=== PATIENT | female | born 1965 | race Caucasian/White ===

== ENCOUNTER → 2024-07-17 15:09 | Outpatient (REF) | payer BC, SELFPAY | LOC: RAD 15:09 | PROVIDERS: ATTENDING PHYSICIAN Student in an Organized Health Care Education/Training Program | DX: M79.604 Pain in right leg (principal) | CPT/HCPCS: 93971 ==

== ENCOUNTER 2024-10-29 06:24 | Day surgery (SDC) | payer BC, SELFPAY | END 2024-10-29 13:29 | disposition home or self-care (01) | LOC: GI 06:24 | PROVIDERS: ATTENDING PHYSICIAN Internal Medicine | DX: Z12.11 Encounter for screening for malignant neoplasm of colon (principal); K64.9 Unspecified hemorrhoids; K57.30 Diverticulosis of large intestine without perforation or abscess without bleeding; Z86.0101 Personal history of adenomatous and serrated colon polyps; K21.00 Gastro-esophageal reflux disease with esophagitis, without bleeding; K22.70 Barrett's esophagus without dysplasia; Z98.890 Other specified postprocedural states; K31.89 Other diseases of stomach and duodenum | CPT/HCPCS: 43239; G0105; 88305; 88342 ==